=== PATIENT | female | born 1995 ===

== ENCOUNTER 2017-01-30 04:08 | Emergency (ER) | payer SELFPAY ==
[~2017-01-30] VITALS: Ht 157.5 cm; Wt 62.7 kg
[2017-01-30 04:11] VITALS: Ht 157.5 cm; Wt 62.7 kg
[2017-01-30] MEDS ORDERED: KETOROLAC 60 MG INJ IM STA (04:23)
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
[2017-01-30] MEDS: ALPRAZOLAM 1 MG TAB PO ONE ×3 (05:29→06:00)
[2017-01-30] MEDS ORDERED: ALBUTEROL 18 GM INHALER INH ONE (05:30)
--- NOTE | 2017-01-30 05:31 | RADRPT ---
PROCEDURE: XR Ribs. CLINICAL INDICATION: Chest pain. TECHNIQUE: 6 frontal and oblique views of the left ribs were obtained. The images were reviewed o n a PACS workstation. COMPARISON: None. FINDINGS: There is no evidence for a rib fracture. The underlying lung parenchyma is intact without evidence f or pneumothorax. IMPRESSION: No acute rib fracture identified. .Rafael Cooper MD, MD Date Time Electronically viewed and signed by .Rafael Cooper MD, MD on 01/30/2017 05:31 .T/
[2017-01-30] MEDS: HYDROCODONE/APAP (10/325) TAB PO ONE ×2 (05:37→06:00)
[2017-01-30] MEDS ORDERED: IBUP-1542 PO (05:38)
[2017-01-30] MEDS ORDERED: HYDR-906 PO (05:38)
== END 2017-01-30 06:01 | disposition home or self-care (01) ==
LOC: FTE 04:08
DX: S20.212A Contusion of left front wall of thorax, initial encounter (principal); J45.909 Unspecified asthma, uncomplicated; R06.02 Shortness of breath; W50.0XXA Accidental hit or strike by another person, initial encounter; Y92.9 Unspecified place or not applicable
CPT/HCPCS: 71100; 96372; 99284; J1885